=== PATIENT | male | born 1990 | race Caucasian/White ===

== ENCOUNTER 2018-03-24 10:49 | Emergency (ER) | payer SELFPAY ==
[~2018-03-24] VITALS: Ht 172.7 cm; Wt 104.3 kg
[~2018-03-24 10:49] MED LIST: AMOXICILLIN500 M2 PO; PEN-VEE K500 MG PO; SEPTRA DS 800 M1 TAB PO; VICODIN 5/500 505 MG PO; VICODIN 500 MG-1 TAB PO
[2018-03-24 11:16] LABS: BASO % 0.2 % (0.0-1.0); EOS # 0.1 10*3/uL (0.0-0.4); EOS % 0.3 % (1.0-4.0); HEMATOCRIT 49.9 % (42.0-52.0); HEMOGLOBIN 17.4 g/dl (14.0-18.0); LYMPH # 1.6 10*3/uL (1.3-4.4); LYMPH % 9.9 % (27.0-41.0); MEAN CELL VOLUME 86.2 fl (80.0-94.0); MEAN CORPUSCULAR HGB 30.1 pg (27.0-31.0); MEAN CORPUSCULAR HGB CONC 34.9 g/dl (33.0-37.0); MEAN PLATELET VOLUME 9.7 fl (9.6-12.3); MONO # 0.7 10*3/uL (0.1-1.0); MONO % 4.2 % (3.0-9.0); NEUT # 14.1 10*3/uL (2.3-7.9); PLATELET COUNT AUTOMATED 232 10*3/uL (130-400); RED BLOOD COUNT 5.79 10*6/uL (4.50-5.90); RED CELL DISTRI WIDTH 12.3 % (0-14.5); WHITE BLOOD COUNT 16.5 10*3/uL (4.8-10.8)
[2018-03-24 11:35] LABS: ALKALINE PHOSPHATASE 66 U/L (45-117); BUN 12 mg/dl (7-24); CHLORIDE 106 mmol/L (98-107); CREATININE 1.01 mg/dL (0.70-1.30); POTASSIUM 4.2 mmol/L (3.5-5.1); SGOT/AST 14 IU/L (3-35); SGPT/ALT 27 U/L (12-78); SODIUM 139 mmol/L (136-145); TOTAL PROTEIN 8.5 gm/dL (6.4-8.2)
[2018-03-24] MEDS ORDERED: ZYRTEC10 MG PO (12:17)
[2018-03-24] MEDS ORDERED: ZITHROMAX250 MG PO (12:17)
[2018-03-24] MEDS ORDERED: FLONASE ALLERG9.9 ML NAS (12:17)
== END 2018-03-24 12:19 | disposition home or self-care (01) ==
LOC: ED 10:49
PROVIDERS: Nurse Practitioner Family
DX: J01.90 Acute sinusitis, unspecified (principal); R51 Headache; F17.200 Nicotine dependence, unspecified, uncomplicated; Z88.8 Allergy status to other drugs, medicaments and biological substances

== ENCOUNTER 2019-07-07 23:46 | Emergency (ER) | payer SELFPAY ==
[~2019-07-07] VITALS: Ht 170.1 cm; Wt 95.3 kg
[~2019-07-07 23:46] MED LIST changes: +FLONASE ALLERG9.9 ML NAS; +ZITHROMAX250 MG PO; +ZYRTEC10 MG PO
== END 2019-07-08 02:53 | disposition home or self-care (01) ==
LOC: ED 23:46
DX: R50.9 Fever, unspecified (principal); Z88.8 Allergy status to other drugs, medicaments and biological substances

== ENCOUNTER 2024-07-18 17:18 | Emergency (ER) | payer OTHER ==
[~2024-07-18] VITALS: Ht 172.7 cm; Wt 97.5 kg
[2024-07-18] MEDS ORDERED: METHOCARBAMOL 500 MG TAB PO ONE (18:45)
[2024-07-18] MEDS ORDERED: Acetaminophen/Hydrocodone 5 MG/325 MG TABLET PO ONE (18:45)
[2024-07-18] MEDS ORDERED: NAPROSYN500 MG PO (19:42)
[2024-07-18] MEDS ORDERED: METHOCARBAMOL500 M1 PO (19:42)
== END 2024-07-18 20:18 | disposition home or self-care (01) ==
LOC: ED 17:18
DX: S16.1XXA Strain of muscle, fascia and tendon at neck level, initial encounter (principal); M25.512 Pain in left shoulder; R07.81 Pleurodynia; Z88.8 Allergy status to other drugs, medicaments and biological substances; Z79.899 Other long term (current) drug therapy; Z98.890 Other specified postprocedural states; V49.59XA Passenger injured in collision with other motor vehicles in traffic accident, initial encounter; Y93.89 Activity, other specified; Y92.89 Other specified places as the place of occurrence of the external cause; Y99.8 Other external cause status